=== PATIENT | female | born 1995 | race Caucasian/White ===

== ENCOUNTER → 2018-05-27 | Outpatient (CLI) | payer BC ==
[2018-05-27 16:38] LABS: BASO % 0.4 % (0.0-1.0); EOS # 0.1 10^3/uL (0.0-0.50); EOS % 0.7 % (0.0-3.0); HEMATOCRIT 36.4 % (36.0-47.0); HEMOGLOBIN 12.9 g/dl (12.0-15.5); IMMATURE GRANULOCYTE % 0.4 % (0-3.0); LYMPH # 1.6 10^3/uL (1.5-6.5); LYMPH % 15.7 % (24.0-44.0); MEAN CORPUSCULAR HEMOGLOBIN 29.7 pg (27.0-33.0); MEAN CORPUSCULAR HGB CONC 35.4 g/dl (32.0-36.5); MEAN CORPUSCULAR VOLUME 83.9 fl (80.0-96.0); MONO # 0.8 10^3/uL (0.0-0.8); MONO % 7.8 % (0.0-5.0); NEUTROPHILS # 7.7 10^3/uL (1.8-7.7); PLATELET COUNT, AUTOMATED 289 10^3/uL (150-450); RED BLOOD COUNT 4.34 10^6/uL (4.00-5.40); RED CELL DISTRIBUTION WIDTH 12.9 % (11.5-14.5); WHITE BLOOD COUNT 10.2 10^3/uL (4.0-10.0)
[2018-05-28 00:10] LABS: CHLAMYDIA DNA AMPLIFICATION NEGATIVE (NEGATIVE); GC DNA AMPLIFICATION NEGATIVE (NEGATIVE)
[2018-05-28 14:46] LABS: HEPATITIS C VIRUS ABY INDEX 0.2 INDEX (<0.8)
[2018-05-28 14:46] LABS: HBsAg Prenatal NEGATIVE (NEGATIVE); HEPATITIS B SURFACE ANTIGEN NEGATIVE (NEGATIVE)
[2018-05-28 15:05] LABS: RUBELLA IgG QUALITATIVE IMMUNE (IMMUNE)
[2018-05-29 14:13] LABS: HIV 1&2 SCREEN CENTAUR NEGATIVE (NEGATIVE)
== END ==
LOC: M WUC 12:20
DX: Z34.81 Encounter for supervision of other normal pregnancy, first trimester (principal); Z3A.10 10 weeks gestation of pregnancy
CPT/HCPCS: 86762

== ENCOUNTER → 2018-07-22 | Outpatient (CLI) | payer BC | LOC: M RAD 12:14 | DX: Z34.02 Encounter for supervision of normal first pregnancy, second trimester (principal); Z36.89 Encounter for other specified antenatal screening; Z3A.18 18 weeks gestation of pregnancy | CPT/HCPCS: 76811 ==

== ENCOUNTER → 2018-08-07 | Outpatient (CLI) | payer BC | LOC: M RAD 13:01 | DX: Z34.02 Encounter for supervision of normal first pregnancy, second trimester (principal); Z3A.20 20 weeks gestation of pregnancy | CPT/HCPCS: 76816 ==

== ENCOUNTER 2018-08-30 10:50 | Outpatient (CLI) | payer BC ==
[~2018-08-30] VITALS: Ht 165.1 cm; Wt 116.3 kg
[2018-08-30 11:03] VITALS: BP 143/79
[2018-08-30] MEDS ORDERED: PRENTAB9 PO (11:06)
[2018-08-30] MEDS ORDERED: PERCOCET 5MG/325MG TAB PO ONE (13:00)
== END 2018-08-30 15:14 | disposition home or self-care (01) ==
LOC: M LDO 10:50
PROVIDERS: ATTEND Specialist
DX: O99.89 Other specified diseases and conditions complicating pregnancy, childbirth and the puerperium (principal); M54.5 Low back pain; Z3A.24 24 weeks gestation of pregnancy
CPT/HCPCS: 59025; G0378; G0463

== ENCOUNTER → 2018-09-24 | Outpatient (CLI) | payer BC, MEDICAID ==
[~2018-09-24] MED LIST: PRENTAB9 PO
[2018-09-24 14:09] LABS: BASO % 0.4 % (0.0-1.0); EOS # 0.1 10^3/uL (0.0-0.50); EOS % 1.3 % (0.0-3.0); HEMOGLOBIN 11.9 g/dl (12.0-15.5); LYMPH # 1.9 10^3/uL (1.5-6.5); LYMPH % 17.2 % (24.0-44.0); MEAN CORPUSCULAR HEMOGLOBIN 30.4 pg (27.0-33.0); MEAN CORPUSCULAR VOLUME 89.3 fl (80.0-96.0); MONO # 0.6 10^3/uL (0.0-0.8); MONO % 5.3 % (0.0-5.0); NEUTROPHILS # 8.3 10^3/uL (1.8-7.7); NEUTROPHILS % 75.2 % (36.0-66.0); PLATELET COUNT, AUTOMATED 220 10^3/uL (150-450); RED BLOOD COUNT 3.92 10^6/uL (4.00-5.40); WHITE BLOOD COUNT 11.1 10^3/uL (4.0-10.0)
== END ==
LOC: M SMT 09:52
PROVIDERS: ATTEND Specialist
DX: Z36.89 Encounter for other specified antenatal screening (principal); Z3A.00 Weeks of gestation of pregnancy not specified

== ENCOUNTER → 2018-11-26 | Outpatient (REF) | payer BC, MEDICAID | LOC: M LAB REF 13:10 | PROVIDERS: ATTEND Obstetrics & Gynecology | DX: Z34.83 Encounter for supervision of other normal pregnancy, third trimester (principal); Z36.85 Encounter for antenatal screening for Streptococcus B ==

== ENCOUNTER → 2018-11-28 | Outpatient (REF) | payer BC, MEDICAID | LOC: M LAB REF 17:38 | PROVIDERS: ATTEND Obstetrics & Gynecology | DX: Z34.03 Encounter for supervision of normal first pregnancy, third trimester (principal); Z36.85 Encounter for antenatal screening for Streptococcus B ==

== ENCOUNTER 2018-12-11 09:18 | Inpatient (IN) | payer BC, MEDICAID ==
[~2018-12-11] VITALS: Ht 162.6 cm; Wt 126.7 kg
[2018-12-11] VITALS (11 sets, daily range): BP systolic 110–140; BP diastolic 53–82
--- NOTE | 2018-12-11 10:30 | HPE ---
DATE OF ADMISSION: 12/11/2018 Kaylah is a 23-year-old 1, para 0 at 38-5/7 weeks, EDC of 12/20/2018 based on last menstrual period and confirmed by first trimester ultrasound. She presents to labor and delivery today following a routine appointment where she was found to have elevated blood pressure and proteinuria as well as a 5 pounds weight gain within 7 days. She denies headache, visual disturbances, epigastric pain and right upper quadrant discomfort. She denies any regular contractions, vaginal bleeding and leakage of fluid. The fetus has been active. Her care was initiated at [facility] in the first trimester. 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 OBSTETRICAL HISTORY: Primigravid obstetric labs A+, antibody screen negative, rubella immune, VDRL nonreactive. Urine culture no growth. Hep B surface antigen negative, HIV negative. Hep C antibody nonreactive. Gonorrhea and chlamydia negative. She did not have genetic serum screening labs performed. Gestational diabetic screening normal at 105 and her GBS is negative. PAST MEDICAL HISTORY: A right kidney blockage surgery 2014, asthma related to seasonal allergies. Vaccinated for varicella. SURGERIES: Right kidney and bunion surgery. FAMILY HISTORY: Diabetes, hypertension and thyroid disorder. SOCIAL HISTORY: The patient is single. Her partner and her mother are on their way for support. She is a nonsmoker. Denies alcohol and drug use. No history of abuse in no history of sexually transmitted infections. ALLERGIES: To sulfa. CURRENT MEDICATIONS: vitamin OBJECTIVE: Temperature 99.1, pulse 93, respirations 18, BP is 140/82 upon arrival. She is alert and oriented times three and she is in no apparent distress. heart rate is 145 with moderate variability, positive accelerations, no decelerations observed. No pattern of regular contractions. Her abdomen is gravid, cephalic presentation. Estimated weight 3,700 grams. Sterile vaginal exam performed in the office by Dr. Sabrina Zamarripa 1-1/2 cm dilated 50% effaced, minus three station. ASSESSMENT: Intrauterine at 38-5/7 weeks. heart rate category one. Preeclampsia. PLAN: Admit the patient to labor and delivery for induction of labor due to consult with Dr. Jet Combs. Labs including CBC, pre-eclamptic profile and spot urine. Saline lock. Out of bed ad mary. Regular diet at this time. Start misoprostol 50 mcg by mouth every 4 hours for cervical ripening. The patient is uncertain if she will desire an epidural when she is in active labor. I did review risks to induction including failed induction increased risk for section and intolerance to labor. The patient has been verbally consented for emergency surgery and blood products if necessary. All of her questions have been answered and she does desire to proceed with induction. I do anticipate cervical ripening.
[2018-12-11] MEDS: miSOPROStol 50 MCG 1/2 TAB (S0191) PO SCH ×3 (10:53→19:50)
[2018-12-11 11:00] LABS: HEMOGLOBIN 10.1 g/dl (12.0-15.5); MEAN CORPUSCULAR HEMOGLOBIN 27.7 pg (27.0-33.0); MEAN CORPUSCULAR HGB CONC 33.7 g/dl (32.0-36.5); MEAN CORPUSCULAR VOLUME 82.4 fl (80.0-96.0); PLATELET COUNT, AUTOMATED 194 10^3/uL (150-450); RED BLOOD COUNT 3.64 10^6/uL (4.00-5.40); WHITE BLOOD COUNT 8.3 10^3/uL (4.0-10.0)
[2018-12-11 11:23] LABS: ALT/SGPT 17 U/L (12-78); BILIRUBIN,TOTAL 0.2 MG/DL (0.2-1.0); CREATININE FOR GFR 0.41 MG/DL (0.55-1.30); GLOMERULAR FILTRATION RATE > 60.0 (>60); LDH LACTATE DEHYDROGENASE 200 U/L (84-246); URIC ACID 4.2 MG/DL (2.6-6.0)
[2018-12-11 13:22] LABS: CREATININE,RANDOM URINE 56.8 MG/DL; TOTAL PROTEIN,RANDOM URINE 19.9 MG/DL (0.0-12.0)
[2018-12-12] VITALS (47 sets, daily range): BP systolic 99–170; BP diastolic 53–86
[2018-12-12] MEDS: LR 1,000 ML IV SCH ×3 (00:44→13:59)
[2018-12-12] MEDS ORDERED: OXYTOCIN DRIP 30 UNITS in APPROPRIATE DILUENT 1 EA IV SCH (00:45)
[2018-12-12] MEDS ORDERED: LR 800 ML IV ONE (11:30)
[2018-12-12] MEDS ORDERED: FENTANYL 2MCG/ML ROPIVACAINE 0.2% IN 0.9% NACL 100ML IVBAG As Ordered ONE (11:33)
[2018-12-12 11:48] LABS: HEMOGLOBIN 10.6 g/dl (12.0-15.5); MEAN CORPUSCULAR HGB CONC 34.2 g/dl (32.0-36.5); PLATELET COUNT, AUTOMATED 183 10^3/uL (150-450); RED BLOOD COUNT 3.78 10^6/uL (4.00-5.40); WHITE BLOOD COUNT 11.3 10^3/uL (4.0-10.0)
[2018-12-12] MEDS ORDERED: LACTATED RINGER'S 1000 ML IV PRN (13:15)
[2018-12-12] MEDS ORDERED: EPIDURAL/PCA KEYS XX PRN (13:15)
[2018-12-12] MEDS ORDERED: diphenhydrAMINE INJ 50MG/ML VIAL (J1200) IV PRN (13:15)
[2018-12-12] MEDS ORDERED: ePHEDrine SULFATE 25 MG/5 ML(5MG/ML) SYRINGE IV PRN (13:15)
[2018-12-12] MEDS ORDERED: NALOXONE INJ 0.4 MG/1 ML VIAL (J2310) IV PRN (13:15)
[2018-12-12] MEDS ORDERED: EPIDURAL COMMENT XX SCH (13:15)
[2018-12-12] MEDS ORDERED: FENTANYL/ROPIVACAINE/NACL BAG 100 ML EPIDURAL SCH (13:15)
[2018-12-12] MEDS ORDERED: ONDANSETRON 4MG/2ML VIAL (J2405) IV PRN ×2 (13:15→17:45)
[2018-12-12] MEDS ORDERED: REFRIGERATOR IV KEYS XX PRN (13:15)
[2018-12-12] MEDS ORDERED: ACETAMINOPHEN 500 MG TAB PO PRN (17:45)
[2018-12-12] MEDS ORDERED: MEASLES,MUMPS,RUBELLA VACCINE INJ (MMR-II) (90707) SC SCH (17:45)
[2018-12-12] MEDS ORDERED: RHOGAM 300 MCG (1500 IU) INJ (J2790) IM SCH (17:45)
[2018-12-12] MEDS ORDERED: OXYTOCIN DRIP 30 UNITS in APPROPRIATE DILUENT 1 EA IV ONE (17:45)
[2018-12-12] MEDS ORDERED: METHYLERGONOVINE MALEATE 0.2 MG TAB PO PRN (17:45)
[2018-12-12] MEDS ORDERED: DIBUCAINE 1% OINTMENT 30GM TOP PRN (17:45)
[2018-12-12] MEDS ORDERED: DOCUSATE SODIUM 100 MG CAP PO PRN (17:45)
[2018-12-12] MEDS: IBUPROFEN 800 MG TAB PO PRN (20:07)
[2018-12-13 06:00] VITALS: BP 134/61
[2018-12-13] MEDS: PRENATAL VITAMINS CHEWABLE TABLET PO SCH (12:37)
--- NOTE | 2018-12-13 12:45 | DN ---
DATE OF DELIVERY: 12/12/2018 PREDELIVERY DIAGNOSIS: 38-5/7 weeks gestation, preeclampsia, induction. POSTDELIVERY DIAGNOSIS: Delivered. PROCEDURE: Spontaneous vaginal delivery. BOX BLANK MACHINE OPERATOR: Jet Combs MD ANESTHESIA: Epidural. ESTIMATED BLOOD LOSS: 300 mL. FINDINGS: 8 pound 3 ounce female , score 8 and 9. DELIVERY SUMMARY: After a 1 hour and 50 minute second stage, the patient spontaneously delivered an 8 pound 3 ounce female infant, score 8 and 9, under epidural anesthesia. There was a nuchal cord times one that was reduced manually. The shoulders delivered with ease. The cried spontaneously, was handed to the mother. The cord was doubly clamped and cut. The placenta delivered shortly thereafter and appeared to be intact. There were no vaginal lacerations present. The patient received intravenous (IV) pitocin immediately after delivery of the placenta. Sponge counts were correct.
[2018-12-13] MEDS: IBUPROFEN 800 MG TAB PO PRN (13:28)
[2018-12-13 18:11] VITALS: BP 146/81
[2018-12-14 06:26] VITALS: BP 132/60
[2018-12-14] MEDS: IBUPROFEN 800 MG TAB PO PRN (07:46)
[2018-12-14] MEDS: PRENATAL VITAMINS CHEWABLE TABLET PO SCH (07:46)
[2018-12-14] MEDS ORDERED: ACET500T15 PO (08:32)
[2018-12-14] MEDS ORDERED: IBUP200C25 PO (08:32)
== END 2018-12-14 10:50 | disposition home or self-care (01) | DRG 560 ==
LOC: M LDI 09:18 → M OBS 12-12 19:15
PROVIDERS: ADMIT Advanced Practice Midwife; ATTEND Advanced Practice Midwife
PROC: 3E0DXGC Introduction of Other Therapeutic Substance into Mouth and Pharynx, External Approach (ICD-10-PCS; 2018-12-11)
PROC: 10E0XZZ Delivery of Products of Conception, External Approach (ICD-10-PCS; principal; 2018-12-12)
DX: O14.94 Unspecified pre-eclampsia, complicating childbirth (principal); O69.82X0 Labor and delivery complicated by other cord entanglement, without compression, not applicable or unspecified; Z37.0 Single live birth; Z3A.38 38 weeks gestation of pregnancy

== ENCOUNTER → 2019-03-05 | Outpatient (CLI) | payer BC ==
[~2019-03-05] MED LIST changes: +ACET500T15 PO; +IBUP200C25 PO
--- NOTE | 2019-03-05 12:28 | REP ---
Left foot four views: The patient states she had bunion surgery 4 years ago and adjusted drop heavy object on distal first metatarsal. There are no comparisons. There is an old healed osteotomy at the neck of the great toe metatarsal with K-wire fixation. There is no acute fracture or dislocation. There are no lytic, blastic or destructive skeletal changes. There is mild osteoarthritis at the great toe MTP articulation. Mineralization and joint spaces otherwise are unremarkable. There are no calcifications. Impression: There is no fracture or dislocation. There is an healed osteotomy of the great toe metatarsal neck. 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 Electronically Signed by Ayaan Florian MD 03/05/2019 12:19 P
== END ==
LOC: M WUC 11:55
PROVIDERS: ATTEND Physician Assistant
DX: S90.32XA Contusion of left foot, initial encounter (principal); X58.XXXA Exposure to other specified factors, initial encounter; Y92.89 Other specified places as the place of occurrence of the external cause

== ENCOUNTER → 2019-06-23 | Outpatient (REF) | payer BC ==
[2019-06-28 14:07] LABS: HPV HYBRID CAPTURE II Negative (Negative)
== END ==
LOC: M LAB REF 17:31
PROVIDERS: ATTEND Specialist
DX: R87.610 Atypical squamous cells of undetermined significance on cytologic smear of cervix (ASC-US) (principal)
CPT/HCPCS: 87624; G0123

== ENCOUNTER → 2020-12-01 | Outpatient (REF) | payer BC | LOC: M SFHCWAGY 17:10 | PROVIDERS: ATTEND Specialist | DX: Z12.4 Encounter for screening for malignant neoplasm of cervix (principal) ==

== ENCOUNTER → 2023-06-18 | Outpatient (REF) | payer BC, OTHER | LOC: M SFHCWAGY 13:01 | PROVIDERS: ATTEND Specialist | DX: Z12.4 Encounter for screening for malignant neoplasm of cervix (principal) | CPT/HCPCS: 87624; G0123 ==

== ENCOUNTER → 2024-03-07 | Outpatient (CLI) | payer OTHER | LOC: M WUC 10:13 | PROVIDERS: ATTEND Internal Medicine | DX: M79.674 Pain in right toe(s) (principal) ==

== ENCOUNTER 2024-05-28 08:21 | Emergency (ER) | payer OTHER ==
[2024-05-28] MEDS: ACETAMINOPHEN 500 MG TAB PO ONE (09:52)
[2024-05-28] MEDS: LIDOCAINE 2% W/EPINEPHRINE 20ML VIAL **PRES FREE INJ ONE (10:40)
[2024-05-28] MEDS: BOOSTRIX VACCINE (TETANUS/DIPHTH/ACEL. PERTUSSIS) 0.5ML SYR IM.IMMUN ONE (13:38)
[2024-05-28 14:01] VITALS: BP 108/76
[2024-05-28 14:16] VITALS: TEMP 99; O2SAT 97
== END 2024-05-28 14:34 | disposition home or self-care (01) ==
LOC: EDBD 08:21 → M ED 08:21
DX: S01.81XA Laceration without foreign body of other part of head, initial encounter (principal); S06.0X0A Concussion without loss of consciousness, initial encounter; V49.40XA Driver injured in collision with unspecified motor vehicles in traffic accident, initial encounter; W22.11XA Striking against or struck by driver side automobile airbag, initial encounter; M54.50 Low back pain, unspecified; I10 Essential (primary) hypertension; J45.909 Unspecified asthma, uncomplicated; Z88.2 Allergy status to sulfonamides; Z23 Encounter for immunization; Z79.1 Long term (current) use of non-steroidal anti-inflammatories (NSAID); Z79.899 Other long term (current) drug therapy; Y92.410 Unspecified street and highway as the place of occurrence of the external cause; Y93.89 Activity, other specified; Y99.9 Unspecified external cause status

== ENCOUNTER → 2024-10-02 | Outpatient (REF) | payer OTHER | LOC: M LAB REF 21:36 | PROVIDERS: ATTEND Physician Assistant | DX: B34.9 Viral infection, unspecified (principal) ==

== ENCOUNTER → 2024-10-15 | Outpatient (REF) | payer OTHER | LOC: M SFHCWAGY 15:06 | PROVIDERS: ATTEND Specialist | DX: Z12.4 Encounter for screening for malignant neoplasm of cervix (principal); Z77.9 Other contact with and (suspected) exposures hazardous to health | CPT/HCPCS: 87624; G0123 ==